=== PATIENT | female | born 1955 | race Caucasian/White ===

== ENCOUNTER → 2016-09-29 | Outpatient (CLI) | payer OTHER ==
[~2016-09-29] VITALS: Ht 160 cm; Wt 99.8 kg
[~2016-09-29] MED LIST: ALLOPURINOL300 MG PO; ATIVAN0.5 MG PO; CALTRATE 600 +1 EAC1 PO; DAILY MULTIPLE1 EACH PO; DESYREL100 MG PO; TOPROL XL100 MG PO
== END | disposition home or self-care (01) ==
LOC: AMB 07:20
PROC: 0DBK8ZX Excision of Ascending Colon, Via Natural or Artificial Opening Endoscopic, Diagnostic (ICD-10-PCS; principal; 2016-09-29)
DX: Z12.11 Encounter for screening for malignant neoplasm of colon (principal); D12.2 Benign neoplasm of ascending colon; K57.30 Diverticulosis of large intestine without perforation or abscess without bleeding; K64.8 Other hemorrhoids; H66.92 Otitis media, unspecified, left ear; Z98.84 Bariatric surgery status; Z95.828 Presence of other vascular implants and grafts; I10 Essential (primary) hypertension; F41.1 Generalized anxiety disorder; M10.00 Idiopathic gout, unspecified site; G47.33 Obstructive sleep apnea (adult) (pediatric); Z80.0 Family history of malignant neoplasm of digestive organs; Z82.3 Family history of stroke; Z83.3 Family history of diabetes mellitus; Z80.42 Family history of malignant neoplasm of prostate
CPT/HCPCS: 88305; J2250; J3010